=== PATIENT | male | born 1975 | race Asian ===

== ENCOUNTER 2024-05-05 20:52 | Emergency (ER) | payer OTHER ==
[2024-05-05 20:57] VITALS: TEMP 98.6
[2024-05-05] MEDS ORDERED: ASPIRIN 325 MG TAB EC PO STA (21:28)
[2024-05-05] MEDS: ASPIRIN 325 MG TAB PO ONE (21:45)
[2024-05-06 00:37] VITALS: PULSE 65; RESP 16; O2SAT 98
== END 2024-05-06 00:40 | disposition home or self-care (01) ==
LOC: FSED 21:04
DX: R00.2 Palpitations (principal); R42 Dizziness and giddiness; R51.9 Headache, unspecified; R53.1 Weakness; R94.31 Abnormal electrocardiogram [ECG] [EKG]
CPT/HCPCS: 71046; 80053; 80076; 81003; 82553; 83880; 84484; 85025; 85379; 93005; 99284